=== PATIENT | female | born 1950 | race Caucasian/White ===

== ENCOUNTER 2016-11-20 14:02 | Emergency (ER) | payer MEDICAID, MEDICARE ==
--- NOTE | 2016-11-20 15:41 | EDM.PDOC ---
ED HPI GENERAL MEDICAL PROBLEM - General Chief Complaint: Respiratory Problem Stated Complaint: COUGH,WEAKNESS Time Seen by Provider: 11/20/16 15:27 Source of Information: Reports: Patient, Family History Limitations: Reports: No Limitations - History of Present Illness INITIAL COMMENTS - FREE TEXT/NARRATIVE: Pt placed on Zpak on Monday for bronchitis. Not feeling better. Does smoke. Denies fever. 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 Appetite poor. Onset: Gradual Onset Date: 11/16/16 Severity: Moderate Improves with: Reports: Medication Worsens with: Reports: Movement Associated Symptoms: Reports: Cough, Loss of Appetite, Malaise denies Pain Score (Numeric/FACES): 0 - Related Data Allergies Allergy/AdvReac Type Severity Reaction Status Date / Time Penicillins Allergy Severe Anaphylactic Verified 11/20/16 14:40 Shock Home Meds: Home Meds Ibuprofen [Motrin] 600 mg PO Q6H PRN 05/13/13 [History] Albuterol Sulfate [Proair Hfa] 2 puff INH ASDIRECTED PRN 06/14/14 [History] Azithromycin [Z-Oumar] 250 mg PO DAILY 06/14/14 [History] Past Medical History - Past Health History Medical/Surgical History: Denies Medical/Surgical History Cardiovascular History: Reports: Hypertension Respiratory History: Reports: COPD Gastrointestinal History: Reports: Other (See Below) Other Gastrointestinal History: abd pain Dermatologic History: Reports: Other (See Below) Other Dermatologic History: dermatitis - Past Surgical History Cardiovascular Surgical History: Reports: None Respiratory Surgical History: Reports: None GI Surgical History: Reports: None Social & Family History - Tobacco Use Smoking Status *Q: Current Every Day Smoker Years of Tobacco use: 50 Packs/Tins Daily: 1 Used Tobacco, but Quit: No Second Hand Smoke Exposure: No - Alcohol Use Days Per Week of Alcohol Use: 0 - Recreational Drug Use Recreational Drug Use: No ED ROS GENERAL - Review of Systems Review Of Systems: See Below Constitutional: Reports: Weakness HEENT: Reports: No Symptoms Respiratory: Reports: Shortness of Breath, Cough, Sputum Cardiovascular: Reports: No Symptoms Musculoskeletal: Reports: No Symptoms Skin: Reports: No Symptoms ED EXAM, GENERAL - Physical Exam Exam: See Below Exam Limited By: No Limitations General Appearance: Alert, WD/WN, No Apparent Distress Ears: Normal External Exam, Normal Canal, Hearing Grossly Normal, Normal TMs Ear Exam: Bilateral Ear: Auricle Normal, Canal Normal, TM normal Nose: Normal Inspection, Normal Mucosa, No Blood Throat/Mouth: Normal Inspection, Normal Lips, Normal Teeth, Normal Gums, Normal Oropharynx, Normal Voice, No Airway Compromise Head: Atraumatic, Normocephalic Neck: Normal Inspection, Supple, Non-Tender, Full Range of Motion Respiratory/Chest: Decreased Breath Sounds Cardiovascular: Normal Peripheral Pulses, Regular Rate, Rhythm, No Edema, No Gallop, No JVD, No Murmur, No Rub Course - Vital Signs Last Recorded V/S: Last Vital Signs Temp 97 F 11/20/16 14:42 Pulse 60 11/20/16 16:32 Resp 14 11/20/16 16:32 BP 175/88 H 11/20/16 16:32 Pulse Ox 98 11/20/16 16:32 - Orders/Labs/Meds Orders: Active Orders 24 hr Category Date Time Status Chest 2V [CR] Stat Exams 11/20/16 15:45 Taken CULTURE RESPIRATORY + SMEAR [RM] Stat Lab 11/20/16 16:31 Results Labs: Laboratory Tests 11/20/16 Range/Units 15:56 WBC 5.4 (4.5-11.0) K/uL RBC 4.86 (3.30-5.50) M/uL Hgb 14.2 (12.0-15.0) g/dL Hct 43.0 (36.0-48.0) % MCV 89 (80-98) fL MCH 29 (27-31) pg MCHC 33 (32-36) % Plt Count 291 (150-400) K/uL Neut % (Auto) 53 (36-66) % Lymph % (Auto) 29 (24-44) % [place] % (Auto) 8 H (2-6) % Eos % (Auto) 9 H (2-4) % Baso % (Auto) 2 H (0-1) % Meds: Medications Discontinued Medications Generic Name Dose Route Start Last Admin Trade Name Freq PRN Reason Stop Dose Admin Arformoterol Tartrate 15 mcg 11/20/16 15:47 11/20/16 16:39 Brovana NEB 11/20/16 15:48 15 mcg ONETIME ONE Administration Methylprednisolone Sodium Succinate 125 mg 11/20/16 16:34 11/20/16 16:44 Solu-Medrol IM 11/20/16 16:35 125 mg ONETIME ONE Administration Departure - Departure Time of Disposition: 16:44 Disposition: Home, Self-Care 01 Condition: good Clinical Impression: Tobacco dependence syndrome, COPD exacerbation - Discharge Information Instructions: Chronic Obstructive Pulmonary Disease Exacerbation, Ozrb-cc-[id number] Referrals: Charli Colón MD [Primary Care Provider] - Forms: ED Department Discharge Additional Instructions: Chest xray shows COPD. No consolidation. CBC WNL. Pt given Brovana 15mcg nebulizer in ER today. Discussed being on a long acting beta agonist for treatment. Strongly consider smoking cessation. Solumedrol 125mg IM ordered in ER but pt refuses. Will place on Medrol dosepak starting tomorrow. Rx given. Note given excusing from work x 3 days. To followup with primary care for PFT's and COPD management. Rx given for Brovana BID and neb machine and supplies. - Problem List Review Problem List Initiated/Reviewed/Updated: Yes - My Orders Last 24 Hours: My Active Orders 11/20/16 15:45 Chest 2V [CR] Stat 11/20/16 16:31 CULTURE RESPIRATORY + SMEAR [RM] Stat - Assessment/Plan Last 24 Hours: My Active Orders 11/20/16 15:45 Chest 2V [CR] Stat 11/20/16 16:31 CULTURE RESPIRATORY + SMEAR [RM] Stat
[2016-11-20] MEDS ORDERED: Arformoterol 15 MCG/2 ML Neb Soln NEB ONE (15:47)
[2016-11-20 16:32] VITALS: BP 175/88
[2016-11-20] MEDS: methylPREDNISolone Sodium Succinate 125 MG/2 ML SDV IM ONE ×2 (16:44→16:50)
--- NOTE | 2016-11-21 08:36 | CR ---
Emphysematous change. Pulmonary hyperinflation. Scarring at the apices. No focal consolidation.
== END 2016-11-20 17:04 | disposition home or self-care (01) ==
LOC: JP.ED 14:02
DX: J44.1 Chronic obstructive pulmonary disease with (acute) exacerbation (principal); I10 Essential (primary) hypertension; F17.210 Nicotine dependence, cigarettes, uncomplicated; Z88.0 Allergy status to penicillin; Z79.899 Other long term (current) drug therapy
CPT/HCPCS: 36415; 71020; 71020-26; 85025; 87070; 87205; 99283; 99284; J2930; J7605

== ENCOUNTER 2016-12-23 20:19 | Emergency (ER) | payer MEDICARE ==
[2016-12-23 21:17] VITALS: BP 153/76
--- NOTE | 2016-12-23 22:26 | EDM.PDOC ---
ED HPI GENERAL MEDICAL PROBLEM - General Chief Complaint: Lower Extremity Injury/Pain Stated Complaint: SLIPPED HURT FOOT Time Seen by Provider: 12/23/16 21:13 Source of Information: Reports: Patient History Limitations: Reports: No Limitations - History of Present Illness INITIAL COMMENTS - FREE TEXT/NARRATIVE: This patient complains of injury to her right foot. She was at home and somehow or another she kicked the edge of the bathtub and hurt the foot in the area of the distal left first and second metatarsals. She said that the bathtub sort of jumped up and bit her. She is able to walk on it however. Right Feet Pain Score (Numeric/FACES): 5 - Related Data Allergies Allergy/AdvReac Type Severity Reaction Status Date / Time Penicillins Allergy Severe Anaphylactic Verified 11/20/16 14:40 Shock Home Meds: Home Meds Ibuprofen [Motrin] 600 mg PO Q6H PRN 05/13/13 [History] Albuterol Sulfate [Proair Hfa] 2 puff INH ASDIRECTED PRN 06/14/14 [History] Past Medical History - Past Health History Medical/Surgical History: Denies Medical/Surgical History Cardiovascular History: Reports: Hypertension Respiratory History: Reports: COPD Gastrointestinal History: Reports: Other (See Below) Other Gastrointestinal History: abd pain 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: Musculoskeletal History: Reports: Fracture Dermatologic History: Reports: Other (See Below) Other Dermatologic History: dermatitis - Past Surgical History Cardiovascular Surgical History: Reports: None Respiratory Surgical History: Reports: None GI Surgical History: Reports: None Social & Family History - Tobacco Use Smoking Status *Q: Heavy Tobacco Smoker Years of Tobacco use: 52 Packs/Tins Daily: 1 Used Tobacco, but Quit: No Second Hand Smoke Exposure: No - Caffeine Use Caffeine Use: Reports: Tea - Alcohol Use Days Per Week of Alcohol Use: 0 - Recreational Drug Use Recreational Drug Use: No Review of Systems - Review of Systems Review Of Systems: ROS reveals no pertinent complaints other than HPI. ED EXAM, GENERAL - Physical Exam Exam: See Below Exam Limited By: No Limitations General Appearance: Alert, Thin Extremities: Other (There is some mild bruising to the right foot the dorsum over the distal first and second metatarsals. No obvious swelling though. Neurovascular tendon all intact) Course - Vital Signs Last Recorded V/S: Last Vital Signs Temp 36.1 C 12/23/16 21:53 Pulse 71 12/23/16 21:53 Resp 20 12/23/16 21:53 BP 153/76 H 12/23/16 21:53 Pulse Ox 98 12/23/16 21:53 - Orders/Labs/Meds Orders: Active Orders 24 hr Category Date Time Status Foot Comp Min 3V Rt [CR] Stat Exams 12/23/16 21:45 Taken - Re-Assessments/Exams Free Text/Narrative Re-Assessment/Exam: 12/24/16 06:50 X-ray shows no evidence of fracture or dislocation Departure - Departure Time of Disposition: 22:25 Disposition: Home, Self-Care 01 Condition: Fair Clinical Impression: Superficial bruising of foot - Discharge Information Instructions: Foot Contusion Referrals: Charli Colón MD [Primary Care Provider] - Forms: ED Department Discharge Additional Instructions: Continue to elevate sure foot and apply ice off and on for the next 12 hours or so. It's okay to walk on it with or without crutches. You should be back to normal in a couple of days - My Orders Last 24 Hours: My Active Orders 12/23/16 21:45 Foot Comp Min 3V Rt [CR] Stat - Assessment/Plan Last 24 Hours: My Active Orders 12/23/16 21:45 Foot Comp Min 3V Rt [CR] Stat
--- NOTE | 2016-12-26 11:03 | CR ---
Foot Comp Min 3V Rt HISTORY: Trauma COMPARISON: None FINDINGS: No fracture or dislocation. No bony destructive process seen.
== END 2016-12-23 22:34 | disposition home or self-care (01) ==
LOC: JP.ED 20:19
DX: S90.31XA Contusion of right foot, initial encounter (principal); F17.210 Nicotine dependence, cigarettes, uncomplicated; I10 Essential (primary) hypertension; J44.9 Chronic obstructive pulmonary disease, unspecified; Z88.0 Allergy status to penicillin; W22.8XXA Striking against or struck by other objects, initial encounter
CPT/HCPCS: 73630-26-RT; 73630-RT; 99282; 99284

== ENCOUNTER 2019-03-20 01:23 | Emergency (ER) | payer MEDICARE ==
[2019-03-20 01:38] VITALS: BP 188/94; PULSE 95
--- NOTE | 2019-03-20 02:08 | EDM.PDOC ---
ED HPI GENERAL MEDICAL PROBLEM - General Chief Complaint: Respiratory Problem Stated Complaint: [facility] Time Seen by Provider: 03/20/19 01:45 Source of Information: Reports: Patient, Family History Limitations: Reports: No Limitations - History of Present Illness INITIAL COMMENTS - FREE TEXT/NARRATIVE: 68 yo with hx of COPD presents with concerns of shortness of breath. Reports that for the last 24-48 hrs has had nasal congestion, cough, dyspnea, increased sputum production. Saw PCP yesterday, started on azithromycin Woke up tonight, went to bathroom, and became very dyspneic Was unable to get her nebulizer so had call EMS EMS gave duoneb, solumedrol. Patient reports large increase in symptoms after neb No fevers. No chest pain. No LE swelling or pain. No hx of DVT. Upper Head Pain Score (Numeric/FACES): 1 - Related Data Allergies Allergy/AdvReac Type Severity Reaction Status Date / Time Penicillins Allergy Severe Anaphylactic Verified 11/20/16 14:40 Shock Home Meds: Home Meds Ibuprofen [Motrin] 600 mg PO Q6H PRN 05/13/13 [History] Albuterol Sulfate [Proair Hfa] 2 puff INH ASDIRECTED PRN 06/14/14 [History] predniSONE [Prednisone] 40 mg PO DAILY #5 tablet 03/20/19 [Rx] Past Medical History - Past Health History Medical/Surgical History: Denies Medical/Surgical History HEENT History: Reports: Impaired Vision Cardiovascular History: Reports: Hypertension, SOB on Exertion Respiratory History: Reports: COPD, SOB Other Respiratory History: emphysema Gastrointestinal History: Reports: Other (See Below) Other Gastrointestinal History: abd pain 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: Musculoskeletal History: Reports: Fracture Neurological History: Reports: Migraines Dermatologic History: Reports: Other (See Below) Other Dermatologic History: dermatitis - Past Surgical History Cardiovascular Surgical History: Reports: None Respiratory Surgical History: Reports: None GI Surgical History: Reports: None Social & Family History - Family History Family Medical History: Unobtainable - Tobacco Use Smoking Status *Q: Current Every Day Smoker Years of Tobacco use: 54 Packs/Tins Daily: 0.5 - Caffeine Use Caffeine Use: Reports: Tea - Recreational Drug Use Recreational Drug Use: No ED ROS GENERAL - Review of Systems Review Of Systems: See Below Constitutional: Reports: No Symptoms HEENT: Reports: No Symptoms Respiratory: Reports: Shortness of Breath, Cough, Sputum Cardiovascular: Reports: No Symptoms. Denies: Chest Pain Endocrine: Reports: No Symptoms GI/Abdominal: Reports: No Symptoms : Reports: No Symptoms Musculoskeletal: Reports: No Symptoms Skin: Reports: No Symptoms Neurological: Reports: No Symptoms Psychiatric: Reports: No Symptoms Hematologic/Lymphatic: Reports: No Symptoms ED EXAM, GENERAL - Physical Exam Exam: See Below Exam Limited By: No Limitations General Appearance: Alert, No Apparent Distress Nose: Normal Inspection Throat/Mouth: Normal Inspection Head: Atraumatic, Normocephalic Neck: Normal Inspection Respiratory/Chest: No Respiratory Distress, Lungs Clear, Normal Breath Sounds, No Accessory Muscle Use. No: Rhonchi, Wheezing Cardiovascular: Regular Rate, Rhythm GI/Abdominal: Soft, Non-Tender Back Exam: Normal Inspection Extremities: Normal Inspection, No Pedal Edema. No: Floyd's Sign Neurological: Alert, Oriented Psychiatric: Normal Affect, Normal Mood Skin Exam: Warm, Dry Course - Vital Signs Last Recorded V/S: Last Vital Signs Temp 36.2 C 03/20/19 01:31 Pulse 95 03/20/19 01:31 Resp 22 H 03/20/19 01:31 BP 188/94 H 03/20/19 01:31 Pulse Ox 94 L 03/20/19 01:31 - Orders/Labs/Meds Orders: Active Orders 24 hr Category Date Time Status Chest 1V Frontal [CR] Stat Exams 03/20/19 01:48 Ordered - Re-Assessments/Exams Free Text/Narrative Re-Assessment/Exam: 68 yo with hx of COPD presents with SOB Reports URI symptoms, increased productive cough and dyspnea over last 1-2 days. Received neb, reports large resolution of symptoms CXR shows changes consistent with COPD, no obvious acute process. Clinical picture consistent with COPD exacerbation Just started azithromycin from PCP Will add course of prednisone Instructed to use duonebs prn and f/u with PCP 03/20/19 02:09 Departure - Departure Time of Disposition: 02:30 Disposition: Home, Self-Care 01 Clinical Impression: COPD with exacerbation - Discharge Information *PRESCRIPTION DRUG MONITORING PROGRAM REVIEWED*: No *COPY OF PRESCRIPTION DRUG MONITORING REPORT IN PATIENT GUILHERME: No Referrals: PCP,None [Primary Care Provider] - Additional Instructions: Please take the prescribed steroids in addition to the antibiotic You can buy a medication called ranitidine over the counter to help with your stomach while you're on the steroid If you feel short of breath, use your nebulizer. Please make a follow up appointment with your primary doctor to further discuss your COPD - My Orders Last 24 Hours: My Active Orders 03/20/19 01:48 Chest 1V Frontal [CR] Stat - Assessment/Plan Last 24 Hours: My Active Orders 03/20/19 01:48 Chest 1V Frontal [CR] Stat
--- NOTE | 2019-03-20 02:54 | CRLCR ---
INDICATION: Shortness of breath. COMPARISON: None. FINDINGS/IMPRESSION: Pulmonary hyperexpansion consistent with chronic obstructive pulmonary disease. Vague 13-14 millimeter opacity projected over the medial left upper lobe, possibly representing a lung nodule. Chest CT is suggested for further evaluation. Lungs otherwise clear. No pleural effusions. Normal heart size. No acute osseous findings. Dictated by Sudeep Reyna MD @ 03/20/2019 2:51:43 AM Dictated by: Sudeep Reyna MD @ 03/20/2019 02:52:52 (Electronically Signed)
== END 2019-03-20 02:57 | disposition home or self-care (01) ==
LOC: JP.ED 01:23
DX: J44.1 Chronic obstructive pulmonary disease with (acute) exacerbation (principal); I10 Essential (primary) hypertension; F17.210 Nicotine dependence, cigarettes, uncomplicated; Z88.0 Allergy status to penicillin; Z79.899 Other long term (current) drug therapy; Z79.51 Long term (current) use of inhaled steroids
CPT/HCPCS: 71045; 99284; 99285-25

== ENCOUNTER 2019-04-16 06:21 | Emergency (ER) | payer MEDICARE ==
--- NOTE | 2019-04-16 06:58 | EDM.PDOC ---
<Randy Harrell - Last Filed: 04/16/19 06:54> ED HPI GENERAL MEDICAL PROBLEM - General Chief Complaint: Respiratory Problem Stated Complaint: [facility] Time Seen by Provider: 04/16/19 06:53 Source of Information: Reports: Patient History Limitations: Reports: No Limitations - History of Present Illness INITIAL COMMENTS - FREE TEXT/NARRATIVE: Been having some cough and shortness of breath for the past couple of days. This morning she awoke and felt more short of breath than usual. She did not use her nebulizers this morning instead just called 911. EMS arrived they gave HER-2 nebulizer treatments and 125 mg Solu-Medrol IV. She says she feels pretty good now. She said she is worried it might be pneumonia. And she continues to smoke chest Pain Score (Numeric/FACES): 1 - Related Data Allergies Allergy/AdvReac Type Severity Reaction Status Date / Time Penicillins Allergy Severe Anaphylactic Verified 04/16/19 06:24 Shock Home Meds: Home Meds Ibuprofen [Motrin] 600 mg PO Q6H PRN 05/13/13 [History] Albuterol Sulfate [Proair Hfa] 2 puff INH ASDIRECTED PRN 06/14/14 [History] Arformoterol [Brovana] 1 unit INH BID 04/16/19 [History] Past Medical History - Past Health History Medical/Surgical History: Denies Medical/Surgical History HEENT History: Reports: Impaired Vision Cardiovascular History: Reports: Hypertension, SOB on Exertion Respiratory History: Reports: COPD, SOB Other Respiratory History: emphysema Gastrointestinal History: Reports: Other (See Below) Other Gastrointestinal History: abd pain 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: Musculoskeletal History: Reports: Fracture Neurological History: Reports: Migraines Dermatologic History: Reports: Other (See Below) Other Dermatologic History: dermatitis - Infectious Disease History Infectious Disease History: Reports: Chicken Pox, Measles, Mumps - Past Surgical History GI Surgical History: Reports: None Social & Family History - Family History Family Medical History: Unobtainable - Tobacco Use Smoking Status *Q: Current Every Day Smoker Years of Tobacco use: 62 Packs/Tins Daily: 0.5 Used Tobacco, but Quit: No Second Hand Smoke Exposure: Yes - Caffeine Use Caffeine Use: Reports: Soda, Tea - Recreational Drug Use Recreational Drug Use: No ED ROS GENERAL - Review of Systems Review Of Systems: ROS reveals no pertinent complaints other than HPI. ED EXAM, GENERAL - Physical Exam Exam: See Below Exam Limited By: No Limitations General Appearance: Alert, No Apparent Distress (Occasional wet sounding cough) , Thin Eye Exam: Bilateral Eye: Normal Inspection Throat/Mouth: Normal Inspection Respiratory/Chest: Rhonchi (She has various scattered rhonchi and but more coarse breath sounds in the right base a little bit of wheezing there) Cardiovascular: Regular Rate, Rhythm Extremities: Other Neurological: Alert (Very thin), Oriented Psychiatric: Normal Affect Skin Exam: Warm, Dry Course - Vital Signs Last Recorded V/S: Last Vital Signs Temp 36.7 C 04/16/19 06:25 Pulse 87 04/16/19 06:25 Resp 20 04/16/19 06:25 BP 150/97 H 04/16/19 06:25 Pulse Ox 99 04/16/19 06:25 - Orders/Labs/Meds Orders: Active Orders 24 hr Category Date Time Status RT Aerosol Therapy [RC] ASDIRECTED Care 04/16/19 07:50 Ordered Albuterol/Ipratropium [DuoNeb 3.0-0.5 MG/3 ML] Med 04/16/19 07:50 Once 3 ml NEB ONETIME ONE methylPREDNISolone Sod Succ [Solu-MEDROL] Med 04/16/19 07:49 Once 125 mg IM ONETIME ONE Medication Orders Albuterol/Ipratropium (Duoneb 3.0-0.5 Mg/3 Ml) 3 ml NEB ONETIME ONE Stop: 04/16/19 07:51 Methylprednisolone Sodium Succinate (Solu-Medrol) 125 mg IM ONETIME ONE Stop: 04/16/19 07:50 Labs: Laboratory Tests 04/16/19 04/16/19 Range/Units 07:28 07:28 WBC 8.8 (4.5-11.0) K/uL RBC 4.94 (3.30-5.50) M/uL Hgb 14.5 (12.0-15.0) g/dL Hct 44.6 (36.0-48.0) % MCV 90 (80-98) fL MCH 29 (27-31) pg MCHC 33 (32-36) % Plt Count 464 H (150-400) K/uL Neut % (Auto) 80 H (36-66) % Lymph % (Auto) 9 L (24-44) % [place] % (Auto) 3 (2-6) % Eos % (Auto) 7 H (2-4) % Baso % (Auto) 1 (0-1) % Sodium 143 (140-148) mmol/L Potassium 4.2 (3.6-5.2) mmol/L Chloride 106 (100-108) mmol/L Carbon Dioxide 30 (21-32) mmol/L Anion Gap 7.2 (5.0-14.0) mmol/L BUN 16 (7-18) mg/dL Creatinine 0.8 (0.6-1.0) mg/dL Est Cr Clr Drug Dosing 35.67 mL/min Estimated GFR (MDRD) > 60 (>60) Glucose 110 H (74-106) mg/dL Calcium 9.5 (8.5-10.1) mg/dL Meds: Medications Generic Name Dose Route Start Last Admin Trade Name Freq PRN Reason Stop Dose Admin Albuterol/Ipratropium 3 ml 04/16/19 07:50 Duoneb 3.0-0.5 Mg/3 Ml NEB 04/16/19 07:51 ONETIME ONE Methylprednisolone Sodium Succinate 125 mg 04/16/19 07:49 Solu-Medrol IM 04/16/19 07:50 ONETIME ONE - Re-Assessments/Exams Free Text/Narrative Re-Assessment/Exam: 04/16/19 06:57 We will do chest x-ray and basic lab work to rule out pneumonia. Oxygen is removed check for room air O2 sat Departure - Departure Disposition: Home, Self-Care 01 Clinical Impression: COPD exacerbation, Bronchitis - Discharge Information Referrals: PCP,None [Primary Care Provider] - Forms: ED Department Discharge Care Plan Goals: For the next 10 days use the nebulizer every 4 hours during the waking hours. Predisone 10 mg daily for the next 5 days--pt had a kenalog shot in ER. zithromax 500mg now then 250 daily for 6 days. cool mist humidifier, push fluids. - My Orders Last 24 Hours: My Active Orders 04/16/19 07:49 methylPREDNISolone Sod Succ [Solu-MEDROL] 125 mg IM ONETIME ONE 04/16/19 07:50 RT Aerosol Therapy [RC] ASDIRECTED Albuterol/Ipratropium [DuoNeb 3.0-0.5 MG/3 ML] 3 ml NEB ONETIME ONE - Assessment/Plan Last 24 Hours: My Active Orders 04/16/19 07:49 methylPREDNISolone Sod Succ [Solu-MEDROL] 125 mg IM ONETIME ONE 04/16/19 07:50 RT Aerosol Therapy [RC] ASDIRECTED Albuterol/Ipratropium [DuoNeb 3.0-0.5 MG/3 ML] 3 ml NEB ONETIME ONE <Laura Del Toro - Last Filed: 04/16/19 08:24> Course - Re-Assessments/Exams Free Text/Narrative Re-Assessment/Exam: 04/16/19 07:51 pt had a normal wbc and her chest xray duid not show a pneumonia She was given kenalog 60mg im and another neb. 04/16/19 08:21 pt is sating at about 94. She is much more comfortable. Departure - Departure Time of Disposition: 08:21 Condition: Fair
--- NOTE | 2019-04-16 07:25 | CRLCR ---
INDICATION: Cough. Shortness of breath. COMPARISON: none TECHNIQUE: Two view chest. FINDINGS: There is symmetric apical pleural scarring. The lungs show hyperinflation and attenuation of the pulmonary vasculature suggesting COPD/emphysema. There are no suspicious infiltrates or masses. The heart, mediastinum and pulmonary vessels are of normal size. There is no evidence of pleural fluid. IMPRESSION: COPD/emphysema. Dictated by Lester Maldonado MD @ 04/16/2019 7:23:58 AM Dictated by: Lester Maldonado MD @ 04/16/2019 07:24:05 (Electronically Signed)
[2019-04-16] MEDS ORDERED: methylPREDNISolone Sodium Succinate 125 MG/2 ML SDV IM ONE (07:49)
[2019-04-16] MEDS ORDERED: Albuterol/Ipratropium 3.0-0.5 MG/3 ML Neb Soln NEB ONE (07:50)
[2019-04-16] MEDS ORDERED: Triamcinolone Acetonide 40 MG/ML 1 ML MDV IM ONE (07:52)
[2019-04-16 08:23] VITALS: BP 133/77; PULSE 74
== END 2019-04-16 08:35 | disposition home or self-care (01) ==
LOC: JP.ED 06:21
DX: J44.1 Chronic obstructive pulmonary disease with (acute) exacerbation (principal); J40 Bronchitis, not specified as acute or chronic; I10 Essential (primary) hypertension; Z79.899 Other long term (current) drug therapy; Z88.0 Allergy status to penicillin; F17.210 Nicotine dependence, cigarettes, uncomplicated
CPT/HCPCS: 36415; 71046; 80048; 85025; 94640; 96372; 99285; J3301; 99284; J7620-GY

== ENCOUNTER 2020-12-29 13:23 | Emergency (ER) | payer MEDICARE ==
--- NOTE | 2020-12-29 14:49 | EDM.PDOC ---
<Divina Jacobson - Last Filed: 12/29/20 15:59> ED HPI GENERAL MEDICAL PROBLEM - General Chief Complaint: General Stated Complaint: RESP PROBLEMS, CAME FROM CLINIC Time Seen by Provider: 12/29/20 14:35 Source of Information: Reports: Patient, Family History Limitations: Reports: No Limitations - History of Present Illness INITIAL COMMENTS - FREE TEXT/NARRATIVE: 70 year old female with history of COPD presents from the clinic due to cough, congestion, shortness of breath, and hypertension. She reports that she went into the clinic for "cold symptoms"- cough, sneezing, congestion and has been using Robitussin without relief of symptoms for the past few days. She denies fevers, nausea, vomiting , diarrhea, or symptoms of systemic infection. She was sent form the clinic due to incidental finding of hypertension with systolic pressure greater than 200 and diastolic pressure greater than 110. She denies chest pain, headache, or other symptoms associated with hypertension. On the way here she did take her home inhaler and denies shortness of breath at this time. Onset: Gradual Onset Date: 12/26/20 Duration: Day(s): Location: Reports: Other (cough, congestion, sneezing) Severity: Mild Improves with: Reports: None Worsens with: Reports: None Associated Symptoms: Reports: Cough. Denies: Confusion, Chest Pain, Diaphoresis, Fever/Chills, Headaches, Nausea/Vomiting, Weakness denies Pain Score (Numeric/FACES): 0 - Related Data Allergies Allergy/AdvReac Type Severity Reaction Status Date / Time Penicillins Allergy Severe Anaphylactic Verified 12/29/20 14:18 Shock Home Meds: Home Meds Ibuprofen [Motrin] 600 mg PO Q6H PRN 05/13/13 [History] Albuterol Sulfate [Proair Hfa] 2 puff INH ASDIRECTED PRN 06/14/14 [History] Budesonide/Formoterol [Symbicort 80-4.5 MCG] 2 puff INH BID 12/29/20 [History] Past Medical History - Past Health History Medical/Surgical History: Denies Medical/Surgical History HEENT History: Reports: Impaired Vision Cardiovascular History: Reports: Hypertension, SOB on Exertion Respiratory History: Reports: COPD, SOB Other Respiratory History: emphysema Gastrointestinal History: Reports: Other (See Below) Other Gastrointestinal History: abd pain [employer] History: Reports: , Spontaneous Musculoskeletal History: Reports: Fracture Neurological History: Reports: Migraines Dermatologic History: Reports: Other (See Below) Other Dermatologic History: dermatitis - Infectious Disease History Infectious Disease History: Reports: Chicken Pox, Measles, Mumps - Past Surgical History Cardiovascular Surgical History: Reports: None Respiratory Surgical History: Reports: None Social & Family History - Family History Family Medical History: Unobtainable - Tobacco Use Tobacco Use Status *Q: Current Every Day Tobacco User Years of Tobacco use: 50 Packs/Tins Daily: 0.5 Used Tobacco, but Quit: No Second Hand Smoke Exposure: Yes - Caffeine Use Caffeine Use: Reports: Soda, Tea - Recreational Drug Use Recreational Drug Use: No ED ROS GENERAL - Review of Systems Review Of Systems: See Below Constitutional: Reports: No Symptoms. Denies: Fever, Chills, Malaise HEENT: Reports: No Symptoms Respiratory: Reports: Shortness of Breath, Wheezing, Cough Cardiovascular: Reports: Blood Pressure Problem (hypertensive today 200s/110s at the clinic). Denies: Chest Pain Endocrine: Reports: No Symptoms GI/Abdominal: Denies: Abdominal Pain, Black Stool, Bloody Stool, Constipation, Diarrhea, Decreased Appetite : Reports: No Symptoms Musculoskeletal: Reports: No Symptoms Skin: Reports: No Symptoms. Denies: Rash Neurological: Reports: No Symptoms. Denies: Confusion, Dizziness, Headache, Numbness, Tingling, Weakness Psychiatric: Reports: No Symptoms Hematologic/Lymphatic: Reports: No Symptoms Immunologic: Reports: No Symptoms ED EXAM, GENERAL - Physical Exam Exam: See Below Free Text/Narrative:: She is resting on cart, alert and oriented, skin is warm and dry, respirations are regular and non labored, no coughing during assessment, wheezing in lung mortensen noted. No abdominal pain with palpation, no edema to lower extremities. Does not appear to be in any distress. Exam Limited By: No Limitations General Appearance: Alert, WD/WN, No Apparent Distress Nose: Normal Inspection Throat/Mouth: Normal Inspection Head: Atraumatic Neck: Normal Inspection Respiratory/Chest: Wheezing Cardiovascular: Regular Rate, Rhythm, No Edema GI/Abdominal: Soft, Non-Tender, No Distention Back Exam: Normal Inspection, Full Range of Motion Extremities: Normal Inspection, Normal Range of Motion, Non-Tender, No Pedal Edema Neurological: Alert, Oriented, Normal Cognition, Normal Gait Psychiatric: Normal Affect, Normal Mood Skin Exam: Warm, Dry, Intact, Normal Color Lymphatic: No Adenopathy Course - Vital Signs Text/Narrative:: She is asymptomatic despite being hypertensive. Chest xray ordered due to COPD hx and wheezing. Patient and family agree with this plan of care. Departure - Departure Time of Disposition: 15:55 Disposition: Home, Self-Care 01 Condition: Good Clinical Impression: Hypertension screening, COPD exacerbation - Discharge Information Instructions: Chronic Obstructive Pulmonary Disease, [id number] Referrals: Charli Colón MD [Primary Care Provider] - Forms: ED Department Discharge Care Plan Goals: Your chest xray today showed over inflation of the lungs due to your emphysema. No infection/ pneumonia. Please try to decrease or stop smoking to save your lungs and prevent the future need for oxygen. Z-pack was sent to the [employer] machine, please take this medication for the full course with food. Follow up at your appointment with your primary Dr Colón on 01/05/21 at 1:30pm to re check your blood pressure as it was very high today. Return to the ER if you have any new or worsening shortness of breath or chest pain, fevers, headaches, urinary trouble or other concerning symptoms. Sepsis Event Note (ED) - Evaluation Sepsis Screening Result: No Definite Risk <Shane Lucia - Last Filed: 12/30/20 16:14> Course - Vital Signs Last Recorded V/S: Last Vital Signs Temp 97.1 F 12/29/20 14:17 Pulse 87 12/29/20 15:03 Resp 18 12/29/20 14:17 BP 172/102 H 12/29/20 15:03 Pulse Ox 96 12/29/20 14:17 Attestation - Student - Attestation Statement Attestation Statement: I personally performed or re-performed the physical examination and medical decision making. I have verified all student documentation or findings, including history, physical exam and/or medical decision making.
[2020-12-29 15:03] VITALS: BP 172/102; PULSE 87
--- NOTE | 2020-12-29 16:00 | CR ---
CHEST: 2 view CLINICAL HISTORY:Shortness of breath COMPARISON:04/16/2019 FINDINGS: Lungs are moderately emphysematous. Heart size and pulmonary vascular normal. There is some pleural parenchymal scarring in both upper lobes. There is a slight increase in density in the left suprahilar region when compared to prior study. This is likely some scarring and superimposition. Underlying lesion cannot be absolutely excluded. IMPRESSION: Severe emphysematous changes Moderate pleural parenchymal scarring both upper lobes and apices Irregular left suprahilar density may have increased since prior study. This could be technical but underlying lesion is not excluded and noncontrast CT chest recommended on a nonacute basis
== END 2020-12-29 15:55 | disposition home or self-care (01) ==
LOC: JP.ED 13:23
DX: J44.1 Chronic obstructive pulmonary disease with (acute) exacerbation (principal); I10 Essential (primary) hypertension; Z72.0 Tobacco use; Z88.0 Allergy status to penicillin
CPT/HCPCS: 71046; 71046-26; 99283; 99283-25

== ENCOUNTER 2021-04-18 09:59 | Emergency (ER) | payer MEDICARE ==
--- NOTE | 2021-04-18 10:24 | EDM.PDOC ---
ED HPI GENERAL MEDICAL PROBLEM - General Chief Complaint: Respiratory Problem Stated Complaint: MED [place] Time Seen by Provider: 04/18/21 10:19 Source of Information: Reports: Patient, Family, RN Notes Reviewed History Limitations: Reports: No Limitations - History of Present Illness INITIAL COMMENTS - FREE TEXT/NARRATIVE: 70-year-old female presents emergency department day complaint of shortness of breath, she has a known history of end-stage COPD is still using tobacco products, she has not been vaccinated for Covid states this morning she woke up severely short of breath does have a cough but she is not producing any sputum no fevers - Related Data Allergies Allergy/AdvReac Type Severity Reaction Status Date / Time Penicillins Allergy Severe Anaphylactic Verified 04/18/21 10:05 Shock Home Meds: Home Meds Ibuprofen [Motrin] 600 mg PO Q6H PRN 05/13/13 [History] Albuterol Sulfate [Proair Hfa] 2 puff INH ASDIRECTED PRN 06/14/14 [History] Budesonide/Formoterol [Symbicort 80-4.5 MCG] 2 puff INH BID 12/29/20 [History] Past Medical History HEENT History: Reports: Impaired Vision Cardiovascular History: Reports: Hypertension, SOB on Exertion Respiratory History: Reports: COPD, SOB Other Respiratory History: emphysema [employer]PER[employer] History: Reports: , Spontaneous Musculoskeletal History: Reports: Fracture Neurological History: Reports: Migraines Dermatologic History: Reports: Other (See Below) Other Dermatologic History: dermatitis - Infectious Disease History Infectious Disease History: Reports: Chicken Pox, Measles, Mumps - Past Surgical History Cardiovascular Surgical History: Reports: None Respiratory Surgical History: Reports: None GI Surgical History: Reports: None Social & Family History - Family History Family Medical History: Unobtainable - Tobacco Use Tobacco Use Status *Q: Heavy Tobacco User Years of Tobacco use: 50 Packs/Tins Daily: 1 - Caffeine Use Caffeine Use: Reports: Soda, Tea - Recreational Drug Use Recreational Drug Use: No ED ROS GENERAL - Review of Systems Review Of Systems: See Below Constitutional: Denies: Fever, Chills HEENT: Reports: No Symptoms Respiratory: Reports: Shortness of Breath, Wheezing, Cough. Denies: Sputum Cardiovascular: Reports: Dyspnea on Exertion GI/Abdominal: Reports: No Symptoms ED EXAM, GENERAL - Physical Exam Exam: See Below Exam Limited By: No Limitations General Appearance: Alert, WD/WN, Mild Distress (Tripoding 2 word sentences) Respiratory/Chest: Decreased Breath Sounds, Rhonchi, Wheezing, Accessory Muscle Use Cardiovascular: Tachycardia GI/Abdominal: Soft, Non-Tender Course - Vital Signs Last Recorded V/S: Last Vital Signs Temp 97.3 F 04/18/21 10:02 Pulse 119 H 04/18/21 10:43 Resp 24 H 04/18/21 10:02 BP 174/115 H 04/18/21 10:43 Pulse Ox 93 L 04/18/21 10:43 - Orders/Labs/Meds Orders: Active Orders 24 hr Category Date Time Status Chest 2V [CR] Urgent Exams 04/18/21 10:22 Taken Labs: Laboratory Tests 04/18/21 04/18/21 04/18/21 Range/Units 10:30 10:30 10:46 WBC 5.7 (4.5-11.0) K/uL RBC 5.31 (3.30-5.50) M/uL Hgb 15.7 H (12.0-15.0) g/dL Hct 47.1 (36.0-48.0) % MCV 89 (80-98) fL MCH 30 (27-31) pg MCHC 33 (32-36) % Plt Count 252 (150-400) K/uL Neut % (Auto) 72.7 H (36-66) % Lymph % (Auto) 14.6 L (24-44) % [place] % (Auto) 8.6 H (2-6) % Eos % (Auto) 3.7 (2-4) % Baso % (Auto) 0.4 (0-1) % Sodium 143 (140-148) mmol/L Potassium 4.2 (3.6-5.2) mmol/L Chloride 105 (100-108) mmol/L Carbon Dioxide 28 (21-32) mmol/L Anion Gap 9.7 (5.0-14.0) mmol/L BUN 18 (7-18) mg/dL Creatinine 0.7 (0.6-1.0) mg/dL Est Cr Clr Drug Dosing 37.48 mL/min Estimated GFR (MDRD) > 60 (>60) Glucose 143 H (74-106) mg/dL Calcium 9.5 (8.5-10.1) mg/dL Troponin I < 0.017 (0.000-0.056) ng/mL SARS-CoV-2 RNA (NOHEMY) Negative (NEGATIVE) Departure - Departure Time of Disposition: 12:05 Disposition: Home, Self-Care 01 Condition: Fair Clinical Impression: COPD exacerbation - Discharge Information Instructions: Chronic Obstructive Pulmonary Disease, [id number] Referrals: PCP,None [Primary Care Provider] - Forms: ED Department Discharge Additional Instructions: Take full course of antibiotics, take full course of prednisone, please followup with your primary care provider in 3-5 days if not better, please call return to the emergency department with worsening of symptoms. Sepsis Event Note (ED) - Evaluation Sepsis Screening Result: No Definite Risk - Focused Exam Vital Signs: Vital Signs Temp Pulse Resp BP Pulse Ox 04/18/21 10:43 119 H 174/115 H 93 L 04/18/21 10:02 97.3 F 108 H 24 H 198/102 H 97 - My Orders Last 24 Hours: My Active Orders 04/18/21 10:22 Chest 2V [CR] Urgent - Assessment/Plan Last 24 Hours: My Active Orders 04/18/21 10:22 Chest 2V [CR] Urgent Plan: Assessment Acuity = acute Site and laterality = COPD exacerbation Etiology = unknown Manifestations = none Location of injury = Home Lab values = CBC, BMP unremarkable chest x-ray shows no acute process troponin was negative Covid was negative Plan Like to treat empirically doxycycline 100 mg p.o. twice daily x7 days, prednisone 20 mg once a day for 5 days follow-up primary care 3 to 5 days if no improvement This note was dictated using [employer] voice recognition software please call with any questions on syntax or grammar.
[2021-04-18 12:38] VITALS: BP 174/115; PULSE 119
--- NOTE | 2021-04-19 09:59 | CR ---
CHEST: 2 view CLINICAL HISTORY:SOB COMPARISON:12/29/2020 FINDINGS: Lungs are emphysematous. There is some persistent irregular density in the left suprahilar region. This is seen on prior studies and likely represent scarring. No infiltrates are seen. Heart and pulmonary vascular are normal. Impression: Moderate emphysematous changes Persistent left suprahilar density likely represents scarring
== END 2021-04-18 12:30 | disposition home or self-care (01) ==
LOC: JP.ED 09:59
DX: J44.1 Chronic obstructive pulmonary disease with (acute) exacerbation (principal); I10 Essential (primary) hypertension; Z72.0 Tobacco use; Z88.0 Allergy status to penicillin; Z79.899 Other long term (current) drug therapy; Z20.822 Contact with and (suspected) exposure to COVID-19
CPT/HCPCS: 36415; 71046; 80048; 84484; 85025; 99285; U0002

== ENCOUNTER 2021-07-04 17:05 | Emergency (ER) | payer MEDICARE ==
[2021-07-04] MEDS ORDERED: Sodium Chloride 0.9% 10 ML Syringe FLUSH PRN (17:31)
[2021-07-04] MEDS ORDERED: HYDROmorphone 0.5 MG/0.5 ML Syringe IVPUSH ONE (17:31)
--- NOTE | 2021-07-04 17:37 | EDM.PDOC ---
<Evens Rosales G - Last Filed: 07/04/21 17:32> ED HPI GENERAL MEDICAL PROBLEM - General Chief Complaint: Abdominal Pain Stated Complaint: ABDOMINAL PAIN Time Seen by Provider: 07/04/21 17:20 Source of Information: Reports: Patient, Old Records History Limitations: Reports: No Limitations - History of Present Illness INITIAL COMMENTS - FREE TEXT/NARRATIVE: 70 yo female here with central abdominal pain that began early this AM. No fever or nausea or hx of the same. No pHx of any abdominal surgeries. Has had elevated BP's in past visits but is not yet on anything for pain relief. Has a hx of smoking, has COPD, and continues to smoke(says she has wheezing currently that is not new). Had a normal BM yesterday, none today which is unusual for her. P ain is worse with coughing. Onset: Today Onset Date: 07/04/21 Duration: Hour(s):, Getting Worse Location: Reports: Abdomen Quality: Reports: Ache Severity: Severe Improves with: Reports: Rest Worsens with: Reports: Movement (or coughing) Context: Reports: Other (See HPI) Associated Symptoms: Reports: Other (no BM today). Denies: Fever/Chills, Bong sea/Vomiting Treatments ART EDITOR: Reports: Other (see below) (none) - Related Data Allergies Allergy/AdvReac Type Severity Reaction Status Date / Time Penicillins Allergy Severe Anaphylactic Verified 07/04/21 17:38 Shock Home Meds: Home Meds Ibuprofen [Motrin] 600 mg PO Q6H PRN 05/13/13 [History] Albuterol Sulfate [Proair Hfa] 2 puff INH ASDIRECTED PRN 06/14/14 [History] Budesonide/Formoterol [Symbicort 80-4.5 MCG] 2 puff INH BID 12/29/20 [History] lisinopriL [Lisinopril] 20 mg PO DAILY 07/04/21 [History] Past Medical History - Past Health History Medical/Surgical History: Denies Medical/Surgical History HEENT History: Reports: Impaired Vision Cardiovascular History: Reports: Hypertension, SOB on Exertion Respiratory History: Reports: COPD, SOB Other Respiratory History: emphysema Gastrointestinal History: Reports: Other (See Below) Other Gastrointestinal History: abd pain 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: 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: , 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 Musculoskeletal History: Reports: Fracture Neurological History: Reports: Migraines Dermatologic History: Reports: Other (See Below) Other Dermatologic History: dermatitis - Infectious Disease History Infectious Disease History: Reports: Chicken Pox, Measles, Mumps - Past Surgical History Cardiovascular Surgical History: Reports: None Respiratory Surgical History: Reports: None GI Surgical History: Reports: None Social & Family History - Family History Family Medical History: Unobtainable - Caffeine Use Caffeine Use: Reports: Soda, Tea ED ROS GENERAL - Review of Systems Review Of Systems: See Below Constitutional: Reports: No Symptoms. Denies: Fever, Chills HEENT: Reports: No Symptoms Respiratory: Reports: Wheezing (chronic) Cardiovascular: Reports: No Symptoms GI/Abdominal: Reports: Abdominal Pain, Constipation (no BM today). Denies: Black Stool, Bloody Stool, Diarrhea, Distension, Hematemesis, Hematochezia, Nausea, Vomiting : Reports: No Symptoms Musculoskeletal: Reports: No Symptoms Skin: Reports: No Symptoms Neurological: Reports: No Symptoms ED EXAM, GI/ABD - Physical Exam Exam: See Below Exam Limited By: No Limitations General Appearance: Alert, WD/WN, No Apparent Distress, Thin Eyes: Bilateral: Normal Appearance Ears: Normal External Exam, Normal Canal, Hearing Grossly Normal Nose: Normal Inspection, No Blood Throat/Mouth: Normal Inspection, Normal Lips, Normal Oropharynx, Normal Voice, No Airway Compromise Head: Atraumatic, Normocephalic Neck: Normal Inspection Respiratory/Chest: No Respiratory Distress, No Accessory Muscle Use, Decreased Breath Sounds, Wheezing. No: Lungs Clear, Normal Breath Sounds, Respiratory Distress Cardiovascular: Regular Rate, Rhythm, No Edema GI/Abdominal Exam: Rigid (somewhat hard on palpation), Rebound, Tender (Just to the left of the midline is her worst pain. ). No: Normal Bowel Sounds, Soft, Non-Tender, Distended, Guarding Back Exam: Normal Inspection. No: CVA Tenderness (R), CVA Tenderness (L) Extremities: Normal Inspection, Normal Range of Motion, Non-Tender, No Pedal Edema Neurological: Alert, Oriented, CN II-XII Intact, Normal Cognition, No Motor/Sensory Deficits Psychiatric: Normal Affect, Normal Mood Skin Exam: Warm, Dry, Intact, Normal Color, No Rash Departure - Departure Disposition: Home, Self-Care 01 Clinical Impression: Lower abdominal pain Constipation Qualifiers: Constipation type: unspecified constipation type Qualified Code(s): K59.00 - Constipation, unspecified - Discharge Information Instructions: Constipation, Adult, [id number] Referrals: Charli Colón MD [Primary Care Provider] - Forms: ED Department Discharge Care Plan Goals: Try stool softeners, laxatives, prune juice or foods that tend to soften your stool. Consider rechecking in 2 or 3 days if not improving. Drink lots of water to stay hydrated, and return anytime if worsening such as fever, increased pain, persistent nausea and vomiting or other concerns. <Shane Lucia - Last Filed: 07/04/21 21:05> Course - Vital Signs Last Recorded V/S: Last Vital Signs Temp 97.8 F 07/04/21 17:40 Pulse 71 07/04/21 20:20 Resp 20 07/04/21 20:20 BP 186/82 H 07/04/21 20:20 Pulse Ox 95 07/04/21 20:20 - Orders/Labs/Meds Orders: Active Orders 24 hr Category Date Time Status Saline Lock Insert [OM.PC] Routine Oth 07/04/21 17:31 Ordered Labs: Laboratory Tests 07/04/21 07/04/21 07/04/21 Range/Units 17:31 17:46 17:46 WBC 5.9 (4.5-11.0) K/uL RBC 5.17 (3.30-5.50) M/uL Hgb 15.0 (12.0-15.0) g/dL Hct 45.8 (36.0-48.0) % MCV 89 (80-98) fL MCH 29 (27-31) pg MCHC 33 (32-36) % Plt Count 287 (150-400) K/uL Sodium 139 L (140-148) mmol/L Potassium 4.4 (3.6-5.2) mmol/L Chloride 101 (100-108) mmol/L Carbon Dioxide 29 (21-32) mmol/L Anion Gap 13.4 (5.0-14.0) mmol/L BUN 13 (7-18) mg/dL Creatinine 0.6 (0.6-1.0) mg/dL Est Cr Clr Drug Dosing 39.25 mL/min Estimated GFR (MDRD) > 60 (>60) Glucose 82 (74-106) mg/dL Calcium 9.3 (8.5-10.1) mg/dL C-Reactive Protein < 0.05 (0.0-0.3) mg/dL Urine Color Yellow (YELLOW) Urine Appearance Slightly cloudy A (CLEAR) Urine pH 7.0 (5.0-8.0) Ur Specific [place] 1.020 (1.008-1.030) Urine Protein Negative (NEGATIVE) mg/dL Urine Glucose (UA) Negative (NEGATIVE) mg/dL Urine Ketones Negative (NEGATIVE) mg/dL Urine Occult Blood Negative (NEGATIVE) Urine Nitrite Negative (NEGATIVE) Urine Bilirubin Negative (NEGATIVE) Urine Urobilinogen 0.2 (0.2-1.0) EU/dL Ur Leukocyte Esterase Trace H (NEGATIVE) Urine RBC 0-5 (0-5) Urine WBC 0-5 (0-5) Ur Epithelial Cells Occasional Amorphous Sediment Occasional Urine Bacteria Occasional Urine Mucus Occasional Meds: Medications Discontinued Medications Generic Name Dose Route Start Last Admin Trade Name Freq PRN Reason Stop Dose Admin Hydromorphone HCl 0.5 mg 07/04/21 17:31 07/04/21 17:55 Hydromorphone 0.5 Mg/0.5 Ml Syringe IVPUSH 07/04/21 17:32 0.5 mg ONETIME ONE Administration Sodium Chloride 1,000 mls @ 500 mls/hr 07/04/21 19:00 07/04/21 18:55 Normal Saline IV 500 mls/hr ASDIRECTED MAGGY Administration Sodium Chloride 70 mls @ 3 mls/sec 07/04/21 19:00 07/04/21 19:18 Normal Saline IV 3 mls/sec ASDIRECTED MAGGY Administration Iopamidol 65 ml 07/04/21 19:00 07/04/21 19:18 Iopamidol 612 Mg/Ml 100 Ml Bottle IV 65 ml . DIRECTED MAGGY Administration Ondansetron HCl 4 mg 07/04/21 18:22 07/04/21 18:29 Ondansetron 4 Mg/2 Ml Sdv IVPUSH 07/04/21 18:23 4 mg ONETIME ONE Administration Prochlorperazine Edisylate 5 mg 07/04/21 19:35 07/04/21 19:44 Prochlorperazine 10 Mg/2 Ml Sdv IVPUSH 01/02/22 19:36 5 mg ONETIME ONE Administration Sodium Chloride 10 ml 07/04/21 17:31 07/04/21 17:58 Sodium Chloride 0.9% 10 Ml Syringe FLUSH 10 ml ASDIRECTED PRN Administration Keep Vein Open - Re-Assessments/Exams Free Text/Narrative Re-Assessment/Exam: 07/04/21 18:48 Female with left lower abdominal pain and nausea and vomiting, care turned over from Dr. Rosales pending labs and further work-up. Her CBC is normal, BMP is normal and CRP is 0. A CT scan of the abdomen and pelvis with IV contrast will be obtained as the patient is still having symptoms. She was given a dose of Zofran because of nausea that developed after the pain medication was given. 07/04/21 20:09 IMPRESSION: Moderate stool and gaseous distention of what is believed to be a redundant sigmoid colon. Remainder of the exam is unremarkable. No other acute or specific finding to explain left-sided abdominal pain. Patient was feeling better after Zofran and IV Compazine. We discussed stool softeners versus laxatives, and the patient is going to try some things that is worked for her in the past and recheck in the next 48 to 72 hours if not improving. She can return sooner if she develops a fever, increased pain, persistent nausea or vomiting or other concerns. Departure - Departure Time of Disposition: 20:21 Sepsis Event Note (ED) - Focused Exam Vital Signs: Vital Signs Temp Pulse Resp BP Pulse Ox 07/04/21 20:20 71 20 186/82 H 95 07/04/21 19:49 68 20 167/60 H 96 07/04/21 18:59 59 L 176/66 H 92 L 07/04/21 18:25 80 222/97 H 93 L 07/04/21 18:01 78 201/93 H 07/04/21 17:40 97.8 F 94 22 H 220/115 H 92 L 07/04/21 17:22 97.8 F 94 22 H 220/115 H 92 L
[2021-07-04] MEDS ORDERED: Ondansetron 4 MG/2 ML SDV IVPUSH ONE (18:22)
[2021-07-04] MEDS ORDERED: Sodium Chloride 0.9% 1,000 ML IV SCH (19:00)
[2021-07-04] MEDS ORDERED: Iopamidol 612 MG/ML 100 ML Bottle IV SCH (19:00)
[2021-07-04] MEDS ORDERED: Prochlorperazine 10 MG/2 ML SDV IVPUSH ONE (19:35)
--- NOTE | 2021-07-04 19:56 | CRLCT ---
For Patients: As a result of the Century Cures Act, medical imaging exams and procedure reports are released immediately into your electronic medical record. You may view this report before your referring provider. If you have questions, please contact your health care provider. INDICATION: Left-sided abdominal pain. TECHNIQUE: CT abdomen and pelvis acquired with 65 cc Isovue-300 IV contrast. COMPARISON: October 17, 2014. FINDINGS: Lower chest: Unremarkable. Liver: Unremarkable. Normal in size and attenuation. No suspicious masses. Gallbladder and bile ducts: Unremarkable. No stones or inflammation. No biliary dilatation. Pancreas: Unremarkable. No mass or inflammation. Spleen: Unremarkable. Normal in size. No masses. Adrenal glands: Unremarkable. No nodules. Kidneys: Unremarkable. No suspicious masses, stones, or hydronephrosis. GI tract: There is stool and gaseous distention of what appears to be a redundant sigmoid colon. Bowel pattern otherwise within normal limits. Normal appendix. Vasculature: Unremarkable. Mesenteric arteries are patent. Lymph nodes: No lymphadenopathy. Omentum/Peritoneum/Abdominal Wall: Unremarkable. No sign of mass or infiltration. No free air or significant free fluid. Pelvis: Unremarkable. Bones: Unremarkable for age. IMPRESSION: Moderate stool and gaseous distention of what is believed to be a redundant sigmoid colon. Remainder of the exam is unremarkable. No other acute or specific finding to explain left-sided abdominal pain. Dictated by Alejo Patel MD @ 07/04/2021 7:54:14 PM Please note that all CT scans at this facility use dose modulation, iterative reconstruction, and/or weight-based dosing when appropriate to reduce radiation dose to as low as reasonably achievable. Dictated by: Alejo Patel MD @ 07/04/2021 19:54:27 (Electronically Signed)
[2021-07-04 20:21] VITALS: BP 186/82; PULSE 71
== END 2021-07-04 20:49 | disposition home or self-care (01) ==
LOC: JP.ED 17:05
DX: K59.00 Constipation, unspecified (principal); J44.9 Chronic obstructive pulmonary disease, unspecified; I10 Essential (primary) hypertension; Z88.0 Allergy status to penicillin; Z79.899 Other long term (current) drug therapy
CPT/HCPCS: 36415; 74177; 80048; 81001; 85027; 86140; 96374; 96375; 99284; J0780; J1170; J2405; J7030; Q9967

== ENCOUNTER 2021-11-29 11:11 | Emergency (ER) | payer MEDICARE ==
[2021-11-29 11:19] VITALS: BP 197/88; PULSE 97
[2021-11-29] MEDS ORDERED: Albuterol/Ipratropium 3.0-0.5 MG/3 ML Neb Soln NEB ONE (11:38)
[2021-11-29] MEDS ORDERED: methylPREDNISolone Sodium Succinate 125 MG/2 ML SDV IVPUSH ONE (11:39)
== END 2021-11-29 13:41 | disposition home or self-care (01) ==
LOC: JP.ED 11:11
DX: U07.1 COVID-19 (principal); J44.1 Chronic obstructive pulmonary disease with (acute) exacerbation; I10 Essential (primary) hypertension; F17.210 Nicotine dependence, cigarettes, uncomplicated; Z88.0 Allergy status to penicillin; Z79.899 Other long term (current) drug therapy; Z20.822 Contact with and (suspected) exposure to COVID-19
CPT/HCPCS: 71045; 94640; 96374; 99283; 99285; J2930; U0002; J7620

== ENCOUNTER 2022-08-29 06:11 | Emergency (ER) | payer MEDICARE ==
[2022-08-29 06:20] VITALS: BP 170/107; PULSE 102
== END 2022-08-29 07:00 | disposition home or self-care (01) ==
LOC: JP.ED 06:11
DX: J44.1 Chronic obstructive pulmonary disease with (acute) exacerbation (principal); I10 Essential (primary) hypertension; Z88.0 Allergy status to penicillin; Z79.899 Other long term (current) drug therapy
CPT/HCPCS: 36415; 71046; 71046-26; 80048; 85025; 86140; 99285

== ENCOUNTER 2023-07-24 09:15 | Emergency (ER) | payer MEDICARE ==
[2023-07-24] MEDS: Aspirin 81 MG Tab.Chew PO ONE (09:32)
[2023-07-24] MEDS: Sodium Chloride 0.9% 1,000 ML IV SCH (09:34)
[2023-07-24] MEDS: Nitroglycerin 0.4 MG Tab.SL SL PRN (09:35)
[2023-07-24 09:37] LABS: BASE EXCESS VENOUS 1.8 mm/L; BICARBONATE,VENOUS 28.3 mmol/L; CARBOXYHEMOGLOBIN 2.4 % (0.0-1.6); METHEMOGLOBIN 0.9 %; O2 SATURATION VENOUS 51.1; OXYHEMOGLOBIN 49.4 %; PCO2 VENOUS 54.2 mm/Hg; PH,VENOUS 7.338 (7.350-7.450); TOTAL HEMOGLOBIN 14.3 g/dL (12.0-16.0)
[2023-07-24] MEDS: Albuterol/Ipratropium 3.0-0.5 MG/3 ML Neb Soln NEB ONE (09:37)
[2023-07-24 09:38] LABS: PO2 VENOUS 28.2 mm/Hg
[2023-07-24 09:39] LABS: BASOPHILS ABSOLUTE AUTO 0.08 K/uL (0.00-0.10); BASOPHILS PERCENT AUTO 1.4 % (0.1-1.3); HEMATOCRIT 41.6 % (34.3-46.0); HEMOGLOBIN 13.5 g/dL (11.2-15.5); IMMATURE GRAN PERCENT AUTO 0.2 % (0.0-0.7); LYMPHOCYTES ABSOLUTE AUTO 1.01 K/uL (0.8-3.3); LYMPHOCYTES PERCENT AUTO 17.6 % (11.4-47.7); MEAN CORPUSCULAR HEMOGLOBIN 29.6 pg (31.6-35.5); MEAN CORPUSCULAR HGB CONC 32.5 g/dL (31.6-35.5); MEAN CORPUSCULAR VOLUME 91.2 fL (81.4-99.0); MONOCYTES ABSOLUTE AUTO 0.31 K/uL (0.20-0.90); MONOCYTES PERCENT AUTO 5.4 % (3.3-12.6); NEUTROPHILS ABSOLUTE AUTO 3.92 K/uL (1.0-7.6); NEUTROPHILS PERCENT AUTO 68.4 % (40.0-78.1); PLATELET COUNT,PLT 309 K/uL (130-375); RED BLOOD CELL COUNT 4.56 M/uL (3.77-5.24); WHITE BLOOD CELL COUNT,WBC 5.7 K/uL (3.2-11.0)
[2023-07-24 09:46] LABS: IMMATURE GRAN ABSOLUTE AUTO 0.01 K/uL (0.00-0.23)
[2023-07-24 09:57] LABS: PROTHROMBIN TIME 10.3 sec (9.2-10.6)
[2023-07-24] MEDS: cloNIDine 0.1 MG Tab PO ONE (10:01)
[2023-07-24 10:07] LABS: A/G RATIO 0.9 (1.2-2.2); ALANINE AMINOTRANSFERASE,ALT 14 U/L (12-78); ALBUMIN 3.3 g/dL (3.4-5.0); ALKALINE PHOSPHATASE 113 U/L (46-116); ANION GAP 9.2 mmol/L (5.0-14.0); ASPARTATE AMNIOTRANSFERASE,AST 20 U/L (15-37); BILIRUBIN TOTAL 0.5 mg/dL (0.2-1.0); BLOOD UREA NITROGEN,BUN 22 mg/dL (7-18); CALCIUM 8.9 mg/dL (8.5-10.1); CARBON DIOXIDE,CO2 29 mmol/L (21-32); CHLORIDE,CL 103 mmol/L (100-108); EST CRCL DRUG DOSING (CG) 22.17 mL/min; ESTIMATED GFR 60 mL/min (>60); GLUCOSE RANDOM 100 mg/dL (74-106); POTASSIUM,K 3.8 mmol/L (3.6-5.2); PRO B-TYPE NATRIUR PEPT,BNPPRO 788 pg/mL (5-125); PROTEIN TOTAL,TP 7.2 g/dL (6.4-8.2); SODIUM,NA 141 mmol/L (140-148); TROPONIN I HIGH SENSITIVITY 11.7 pg/mL (<=60.3)
[2023-07-24 10:18] LABS: CORONAVIRUS COVID-19 NAA NEGATIVE (NEGATIVE); INFLUENZA A NAA NEGATIVE (NEGATIVE); INFLUENZA B NAA NEGATIVE (NEGATIVE); RESPIRATORY SYNCYTIAL VIR NAA NEGATIVE (NEGATIVE)
[2023-07-24] MEDS: Lisinopril 10 MG Tab PO ONE (10:58)
[2023-07-24] MEDS: Sodium Chloride 0.9% 100 ML IV ONE (11:48)
[2023-07-24] MEDS: Sodium Chloride 0.9% 10 ML Syringe FLUSH ONE (11:48)
[2023-07-24] MEDS: Iopamidol 755 Mg/ML 100 ML Bottle IV ONE (11:49)
[2023-07-24 13:25] LABS: APPEARANCE,URINE CLEAR (CLEAR); BILIRUBIN,URINE NEGATIVE (NEGATIVE); COLOR,URINE YELLOW (YELLOW); GLUCOSE,URINE 100 mg/dL (NEGATIVE); KETONES,URINE NEGATIVE (NEGATIVE); LEUKOCYTE ESTERASE,URINE NEGATIVE (NEGATIVE); NITRITE,URINE NEGATIVE (NEGATIVE); OCCULT BLOOD,URINE NEGATIVE (NEGATIVE); PH,URINE 5.5 (5.0-8.0); PROTEIN,URINE 30 mg/dL (NEGATIVE); UROBILINOGEN,URINE 0.2 EU/dL (0.2-1.0)
[2023-07-24 13:30] VITALS: BP 157/64; PULSE 73
[2023-07-24 13:57] LABS: AMORPHOUS SEDIMENT,URINE NOT SEEN; BACTERIA,URINE RARE; EPITHELIAL CELLS,URINE RARE; MUCUS,URINE RARE; RBC,URINE 0-5 (0-5); WBC,URINE 0-5 (0-5)
== END 2023-07-24 13:44 | disposition home or self-care (01) ==
LOC: JP.ED 09:15
DX: J44.1 Chronic obstructive pulmonary disease with (acute) exacerbation (principal); I10 Essential (primary) hypertension; Z88.0 Allergy status to penicillin; Z86.16 Personal history of COVID-19
CPT/HCPCS: 0241U; 36415; 71045; 71275; 80053; 81001; 82803; 83605; 83735; 83880; 84145; 84484; 85025; 85379; 85610; 93005; 94640; 99285; A9270; J3490; J7030; Q9967; J7620